=== PATIENT | female | born 2000 | race Caucasian/White ===

== ENCOUNTER 2023-11-02 07:30 | Outpatient (CLI) | payer OTHER | END 2023-11-02 07:31 | disposition home or self-care (01) | LOC: NM 07:30 | PROVIDERS: ATTEND Physician Assistant Medical | DX: R11.2 Nausea with vomiting, unspecified (principal) | CPT/HCPCS: 76700; 78264; A9541 ==

== ENCOUNTER 2025-04-28 15:52 | Emergency (ER) | payer OTHER ==
[2025-04-28] MEDS ORDERED: Ondansetron PF 4 MG/2 ML Vial ONE (17:48)
[2025-04-28] MEDS ORDERED: Milk Of Magnesia 30 ML UDCUP ONE (17:48)
[2025-04-28] MEDS ORDERED: Lidocaine Viscous Sol 2% 15 ml UD Cup ONE (17:49)
[2025-04-28 18:36] LABS: #Basophils Less than 0.03 10x3/uL (0.0-0.2); #Eosinophils Less than 0.03 10x3/uL (0.0-0.7); #Monocytes 0.70 10x3/uL (0.11-0.59); #Neutrophils 5.83 10x3/uL (1.40-6.50); %Basophils 0.3 % (0.0-1.0); %Eosinophils 0.1 % (0.0-10.0); %Lymphocytes 6.1 % (21.0-51.0); %Monocytes 10.0 % (0.0-10.0); %Neutrophils 83.2 % (42.0-75.0); Hematocrit 39.2 % (36.0-47.0); Hemoglobin 13.3 g/dL (12.0-16.0); Mean Corpuscular Hemoglobin 25.8 pg (27.0-31.0); Mean Corpuscular Volume 76.1 fL (78.0-98.0); Platelet Count 176 10x3/uL (130-400); Red Blood Cell (RBC) Count 5.15 mill/uL (4.20-5.40); White Blood Cell (WBC) Count 7.01 10x3/uL (4.8-10.8)
[2025-04-28 18:51] LABS: ALT (SGPT) 8 U/L (Less than 34); AST (SGOT) 19 U/L (11-34); Albumin 4.1 g/dL (3.1-4.5); Alkaline Phosphatase 56 U/L (40-110); Anion Gap 17 mmol/L (10-20); BHCG - Serum Negative (NEGATIVE); BUN (Urea Nitrogen) 7 mg/dL (7.0-18.7); Bilirubin, Total 0.3 mg/dL (0.3-1.2); Calc. Creatinine Clearance 0 mL/min (70-130); Calcium 8.7 mg/dL (7.8-10.44); Carbon Dioxide 22 mmol/L (22-29); Chloride 105 mmol/L (98-107); Globulin 2.4 g/dL (2.4-3.5); Glucose 111 mg/dL (70-105); Potassium 3.7 mmol/L (3.5-5.1); Pregs Control Background? CLEAR/WHITE (CLR/WHITE); Pregs Control Bar Appear? YES (CONTROL BAR); Sodium 140 mmol/L (136-145)
== END 2025-04-28 19:55 | disposition home or self-care (01) ==
LOC: ERS 15:52
DX: J10.1 Influenza due to other identified influenza virus with other respiratory manifestations (principal); H73.91 Unspecified disorder of tympanic membrane, right ear
CPT/HCPCS: 80053; 83690; 84703; 85025; 87428; 96361; 96372; 96374; J2405